=== PATIENT | female | born 1970 | race Caucasian/White ===

== ENCOUNTER → 2021-05-31 10:00 | Outpatient (BNVA) | payer OTHER, SELFPAY | PROVIDERS: PCP Internal Medicine; Visit Provider Physician Assistant | DX: Z13.89 Encounter for screening for other disorder (principal) | CPT/HCPCS: 73630; 99203 ==

== ENCOUNTER 2021-09-08 08:47 | Outpatient (REF) | payer OTHER, SELFPAY ==
--- NOTE | ~2021-09-08 | XR_ITS ---
EXAMINATION: XR CHEST CLINICAL INFORMATION: Post Covid with pleuritic chest pain COMPARISON: 11/17/2008 TECHNIQUE: 2 views of the chest were obtained. FINDINGS: The lung ocampo are grossly clear. The cardiac silhouette is felt to be within normal limits. There is no effusion. Likely nipple shadow overlying the lower lung zone on the left. Also seen previously. There is no effusion Some degenerative change in the thoracic spine ongoing from previous. No acute compression injury. XR/XR chest 2V IMPRESSION: No acute finding.
[2021-09-08 10:06] LABS: MANUAL DIFF FLAG NO
[2021-09-08 10:23] LABS: Basophils Percent Auto 0.6 % (0-2); Eosinophils Absolute Auto 0.1 X10*3/uL (0.0-0.4); Eosinophils Percent Auto 1.7 % (0-4); Hematocrit 45.6 % (37.0-47.0); Imm Gran Abs Auto 0.02 X10*3/uL (0.00-0.03); Imm Gran Pct Auto 0.4 % (0.0-0.4); Lymphocytes Absolute Auto 2.3 X10*3/uL (1.2-4.9); Lymphocytes Percent Auto 42.9 % (20-40); Mean Corpuscular HGB Conc 32.9 g/dl (31.0-35.0); Mean Corpuscular Hemoglobin 28.8 pg (27.0-33.0); Mean Corpuscular Volume 87.7 fL (80.0-98.0); Mean Platelet Volume 8.7 fL (9.4-12.3); Monocytes Absolute Auto 0.4 X10*3/uL (0.1-1.2); Monocytes Percent Auto 7.9 % (2-11); Neutrophils Absolute Auto 2.5 x10*3/uL (2.0-8.3); Neutrophils Percent Auto 46.5 % (45-73); Platelet Count 249 X10*3/uL (160-400); Red Cell Distribution Width 11.9 % (11.0-16.0); White Blood Count 5.5 X10*3/uL (4.8-10.8)
[2021-09-08 10:53] LABS: Alanine Aminotransferase 21 U/L (0-31); Albumin Level 4.4 g/dL (3.5-5.0); Alkaline Phosphatase 109 U/L (39-117); Anion Gap 12 (12-20); Aspartate Amino Transferase 20 U/L (5-31); Bilirubin Total 0.5 mg/dL (0.0-1.0); Blood Urea Nitrogen 16 mg/dL (9-16); Calcium 9.8 mg/dL (8.4-10.2); Carbon Dioxide 30 mmol/L (22-29); Chloride 103 mmol/L (96-108); Estimated Glomerular Filt Rate > 60; Glucose Random 98 mg/dL (60-115); Magnesium 2.1 mg/dL (1.6-2.6); Potassium 4.5 mmol/L (3.3-5.1); Sodium 140 mmol/L (135-145); Total Protein 7.3 g/dL (6.5-8.0)
[2021-09-08 11:15] LABS: Vitamin D 25-OH Total 43.3 ng/mL (>30)
== END 2021-09-08 08:48 | disposition home or self-care (01) ==
LOC: HO.LAB 08:47
PROVIDERS: PCP Nurse Practitioner Family; Visit Provider Nurse Practitioner Family
DX: U09.9 Post COVID-19 condition, unspecified (principal); R25.2 Cramp and spasm; E55.9 Vitamin D deficiency, unspecified; R53.83 Other fatigue
CPT/HCPCS: 36415; 71046; 80053; 82306; 83735; 85025

== ENCOUNTER 2021-09-27 08:51 | Outpatient (REF) | payer OTHER, SELFPAY ==
[2021-09-27 09:23] LABS: COVID-19 Test Negative (Negative)
== END 2021-09-27 08:52 | disposition home or self-care (01) ==
LOC: HO.LAB 08:51
PROVIDERS: Visit Provider Internal Medicine
DX: Z20.822 Contact with and (suspected) exposure to COVID-19 (principal)
CPT/HCPCS: 87635; C9803

== ENCOUNTER 2022-03-20 | Outpatient (REF) | payer OTHER, SELFPAY ==
[2022-03-20 12:38] LABS: C Reactive Protein 0.23 mg/dL (< or = 0.50); Rheumatoid Factor < 15.0 IU/mL (<15.0)
[2022-03-20 12:59] LABS: Erythrocyte Sedimentation Rate 8 MM/HR (0-20)
[2022-03-22 08:46] LABS: Lyme Abs Screen <0.90 index
[2022-03-22 18:07] LABS: Cyclic Citrullinated Peptide <16 UNITS
== END 2022-03-20 00:01 | disposition home or self-care (01) ==
LOC: HO.LAB
PROVIDERS: Visit Provider Nurse Practitioner Family
DX: M25.50 Pain in unspecified joint (principal)
CPT/HCPCS: 36415; 85652; 86140; 86200; 86431; 86617; 86618

== ENCOUNTER 2022-03-22 08:52 | Outpatient (REF) | payer OTHER, SELFPAY ==
--- NOTE | ~2022-03-22 | MM_ITS ---
EXAMINATION: MM SCREENING DIGITAL BREAST TOMOSYNTHESIS, BILATERAL CLINICAL INFORMATION: Screening. Asymptomatic. The lifetime risk of breast cancer based on the Tyrer-Cuzick Model is 8%. COMPARISON: Outside mammography: 01/30/2018, 09/05/2012 ([facility]) TECHNIQUE: Digital mammography is performed in craniocaudal and mediolateral oblique views along with computer-aided detection (CAD). Digital breast tomosynthesis is performed in implant-displaced craniocaudal and implant-displaced mediolateral oblique views along with computer-aided detection (CAD). Synthesized 2D images are generated from the tomosynthesis. FINDINGS: There are scattered areas of fibroglandular density (ACR BI-RADS breast composition Category b). There are no significant masses, abnormal calcifications, or other abnormalities. There are bilateral implants. Implant contours are similar to prior outside exam. There is no developing density or interval mass or architectural abnormality. The axilla are unremarkable. No significant changes from outside studies. MM/MM tomosynthesis screen imp BI IMPRESSION: No mammographic evidence of malignancy. ASSESSMENT: BI-RADS 2: Benign RECOMMENDATION: Routine annual mammography screening. This patient's information was entered into a reminder system with a target due date for their next mammogram.
== END 2022-03-22 08:53 | disposition home or self-care (01) ==
LOC: HO.MAMMO 08:52
PROVIDERS: Visit Provider Nurse Practitioner Family
DX: Z12.31 Encounter for screening mammogram for malignant neoplasm of breast (principal)
CPT/HCPCS: 77063; 77067

== ENCOUNTER 2022-05-30 09:37 | Outpatient (REF) | payer OTHER, SELFPAY ==
--- NOTE | ~2022-05-30 | XR_ITS ---
EXAMINATION: XR CERVICAL SPINE XR LUMBAR SPINE CLINICAL INFORMATION: Cervical and lumbar pain. COMPARISON: None TECHNIQUE: AP, lateral, open-mouth, bilateral oblique views of the cervical spine. AP, lateral, coned down, bilateral oblique views of the lumbar spine. FINDINGS: CERVICAL SPINE: Mild straightening of the normal cervical lordosis which may be positional or related to muscle spasm. No acute fracture or subluxation. No loss of vertebral body height. Loss of intervertebral disc height at C5-C6 with small anterior endplate osteophytes at C5-C6 and C6-C7. Mild bilateral neural foraminal stenosis at C5-C6. Unremarkable facet joints. No concerning lytic or blastic osseous lesion. Unremarkable prevertebral soft tissues. Normal atlantoaxial alignment. LUMBAR SPINE: Normal vertebral body alignment. The lumbar lordosis is maintained. No acute fracture or subluxation. No loss of vertebral body height. Mild loss of intervertebral disc height with tiny endplate osteophytes at L5-S1. Bilateral facet arthropathy at L4-L5 and L5-S1. No abnormal soft tissue calcification. XR/XR lumbar spine 4V min IMPRESSION: Cervical Spine: Mild straightening of the normal cervical lordosis, which may be positional or related to muscular spasm. Mild degenerative disc disease at C5-C6 and C6-C7 with mild bilateral neural foraminal stenosis at C5-C6. Lumbar Spine: Mild degenerative disc disease at L5-S1 with bilateral facet arthropathy at L4-L5 and L5-S1.
--- NOTE | ~2022-05-30 | XR_ITS ---
EXAMINATION: XR CERVICAL SPINE XR LUMBAR SPINE CLINICAL INFORMATION: Cervical and lumbar pain. COMPARISON: None TECHNIQUE: AP, lateral, open-mouth, bilateral oblique views of the cervical spine. AP, lateral, coned down, bilateral oblique views of the lumbar spine. FINDINGS: CERVICAL SPINE: Mild straightening of the normal cervical lordosis which may be positional or related to muscle spasm. No acute fracture or subluxation. No loss of vertebral body height. Loss of intervertebral disc height at C5-C6 with small anterior endplate osteophytes at C5-C6 and C6-C7. Mild bilateral neural foraminal stenosis at C5-C6. Unremarkable facet joints. No concerning lytic or blastic osseous lesion. Unremarkable prevertebral soft tissues. Normal atlantoaxial alignment. LUMBAR SPINE: Normal vertebral body alignment. The lumbar lordosis is maintained. No acute fracture or subluxation. No loss of vertebral body height. Mild loss of intervertebral disc height with tiny endplate osteophytes at L5-S1. Bilateral facet arthropathy at L4-L5 and L5-S1. No abnormal soft tissue calcification. XR/XR cervical spine 4V IMPRESSION: Cervical Spine: Mild straightening of the normal cervical lordosis, which may be positional or related to muscular spasm. Mild degenerative disc disease at C5-C6 and C6-C7 with mild bilateral neural foraminal stenosis at C5-C6. Lumbar Spine: Mild degenerative disc disease at L5-S1 with bilateral facet arthropathy at L4-L5 and L5-S1.
== END 2022-05-30 09:38 | disposition home or self-care (01) ==
LOC: HO.XRAY 09:37
PROVIDERS: PCP Nurse Practitioner Family; Visit Provider Psychiatry & Neurology Neurology
DX: M54.2 Cervicalgia (principal); M54.50 Low back pain, unspecified
CPT/HCPCS: 72050; 72110

== ENCOUNTER 2022-08-10 11:49 | Outpatient (REF) | payer OTHER, SELFPAY ==
[2022-08-10 12:14] LABS: Appearance Urine Clear; Color Urine Yellow; Glucose Urine UA Negative (Negative); Leukocyte Esterase Urine Negative (Negative); Nitrite Urine Negative (Negative); Specific Gravity - Urine <= 1.005 (1.005-1.025); Urine Blood Negative (Negative); Urine Ketones Negative (Negative); Urine Protein Negative (Neg-Trace)
[2022-08-10 12:20] LABS: Bacteria Urine None Seen (None Seen); Hyaline Casts Urine 0-2 /LPF (0-2); RBC Urine 0-2 /HPF (0-2); WBC Urine 0-5 /HPF (0-5)
== END 2022-08-10 11:50 | disposition home or self-care (01) ==
LOC: HO.LAB 11:49
PROVIDERS: PCP Nurse Practitioner Family; Visit Provider Obstetrics & Gynecology
DX: N94.9 Unspecified condition associated with female genital organs and menstrual cycle (principal); R14.0 Abdominal distension (gaseous); R10.2 Pelvic and perineal pain
CPT/HCPCS: 81001; 87086

== ENCOUNTER 2022-09-21 11:12 | Outpatient (REF) | payer OTHER, SELFPAY ==
[2022-09-21 11:28] LABS: MANUAL DIFF FLAG NO
[2022-09-21 11:52] LABS: Basophils Percent Auto 0.7 % (0-2); Eosinophils Absolute Auto 0.1 X10*3/uL (0.0-0.4); Eosinophils Percent Auto 1.7 % (0-4); Hematocrit 44.1 % (37.0-47.0); Imm Gran Abs Auto 0.02 X10*3/uL (0.00-0.03); Imm Gran Pct Auto 0.3 % (0.0-0.4); Lymphocytes Absolute Auto 1.7 X10*3/uL (1.2-4.9); Lymphocytes Percent Auto 28.7 % (20-40); Mean Corpuscular Hemoglobin 29.5 pg (27.0-33.0); Mean Corpuscular Volume 86.6 fL (80.0-98.0); Mean Platelet Volume 9.3 fL (9.4-12.3); Monocytes Absolute Auto 0.4 X10*3/uL (0.1-1.2); Monocytes Percent Auto 7.6 % (2-11); Neutrophils Absolute Auto 3.6 x10*3/uL (2.0-8.3); Platelet Count 214 X10*3/uL (160-400); Red Blood Count 5.09 X10*6/uL (4.20-5.50); Red Cell Distribution Width 12.1 % (11.0-16.0); White Blood Count 5.8 X10*3/uL (4.8-10.8)
[2022-09-21 12:41] LABS: Erythrocyte Sedimentation Rate 7 MM/HR (0-20)
[2022-09-21 13:25] LABS: Free T4 (Free Thyroxine) 1.05 ng/dL (0.71-1.85); Thyroid Stimulating Hormone 1.57 uIU/mL (0.32-4.0)
== END 2022-09-21 11:13 | disposition home or self-care (01) ==
LOC: HO.LAB 11:12
PROVIDERS: PCP Nurse Practitioner Family; Visit Provider Obstetrics & Gynecology
DX: R10.2 Pelvic and perineal pain (principal); N92.0 Excessive and frequent menstruation with regular cycle
CPT/HCPCS: 36415; 84439; 84443; 85025; 85652

== ENCOUNTER 2022-12-06 07:48 | Outpatient (REF) | payer OTHER, SELFPAY ==
[2022-12-06 09:10] LABS: Alanine Aminotransferase 23 U/L (0-31); Albumin Level 4.2 g/dL (3.5-5.0); Alkaline Phosphatase 128 U/L (39-117); Anion Gap 14 (12-20); Aspartate Amino Transferase 21 U/L (5-31); Bilirubin Total 0.6 mg/dL (0.0-1.0); Blood Urea Nitrogen 18 mg/dL (9-16); Calcium 9.3 mg/dL (8.4-10.2); Carbon Dioxide 26 mmol/L (22-29); Chloride 106 mmol/L (96-108); Estimated Glomerular Filt Rate > 60; Glucose Random 102 mg/dL (60-115); Iron 82 mcg/dL (30-160); Percent Iron Saturation 28 % (15-50); Potassium 4.5 mmol/L (3.3-5.1); Sodium 141 mmol/L (135-145); Total Iron Binding Capacity 291 mcg/dL (228-428); Total Protein 6.8 g/dL (6.5-8.0); Unsaturated Iron Binding 209 ug/dL
[2022-12-06 09:37] LABS: Thyroid Stimulating Hormone 1.98 uIU/mL (0.32-4.0); Vitamin B12 495 pg/mL (200-900)
== END 2022-12-06 07:49 | disposition home or self-care (01) ==
LOC: HO.LAB 07:48
PROVIDERS: Visit Provider Nurse Practitioner Family
DX: Z13.220 Encounter for screening for lipoid disorders (principal); R53.83 Other fatigue; D64.9 Anemia, unspecified; I10 Essential (primary) hypertension
CPT/HCPCS: 36415; 80053; 82607; 83540; 84443

== ENCOUNTER 2023-12-18 10:00 | Outpatient (RCR) | payer OTHER, SELFPAY | END 2024-02-25 10:48 | disposition home or self-care (01) | LOC: HO.PT 10:00 | PROVIDERS: PCP Nurse Practitioner Family; Visit Provider Nurse Practitioner Family | DX: M25.511 Pain in right shoulder (principal); M79.601 Pain in right arm | CPT/HCPCS: 95992; 97033; 97110; 97112; 97140; 97161 ==

== ENCOUNTER 2024-01-03 10:54 | Outpatient (RCR) | payer OTHER, SELFPAY | END 2024-04-13 11:26 | disposition home or self-care (01) | LOC: HO.PT 10:54 | PROVIDERS: PCP Nurse Practitioner Family; Visit Provider Nurse Practitioner Family | DX: H81.10 Benign paroxysmal vertigo, unspecified ear (principal) | CPT/HCPCS: 95992; 97161 ==

== ENCOUNTER 2024-01-21 09:31 | Outpatient (REF) | payer OTHER, SELFPAY ==
[2024-01-21 11:03] LABS: Alanine Aminotransferase 19 U/L (0-31); Albumin Level 4.2 g/dL (3.5-5.0); Alkaline Phosphatase 134 U/L (39-117); Anion Gap 12 (12-20); Aspartate Amino Transferase 19 U/L (5-31); Bilirubin Total 0.4 mg/dL (0.0-1.0); Blood Urea Nitrogen 14 mg/dL (9-16); Calcium 9.3 mg/dL (8.4-10.2); Carbon Dioxide 26 mmol/L (22-29); Chloride 107 mmol/L (96-108); Cholesterol 230 mg/dL (<200); Estimated Glomerular Filt Rate > 60; Glucose Random 96 mg/dL (60-115); HDL Cholesterol 54 mg/dL (>40); LDL Cholesterol Calculated 156 mg/dL (<100); Sodium 141 mmol/L (135-145); Total Protein 6.9 g/dL (6.5-8.0); Triglycerides 100 mg/dL (<150)
== END 2024-01-21 09:32 | disposition home or self-care (01) ==
LOC: HO.LAB 09:31
PROVIDERS: Visit Provider Nurse Practitioner Family
DX: Z00.00 Encounter for general adult medical examination without abnormal findings (principal); I10 Essential (primary) hypertension
CPT/HCPCS: 36415; 80053; 80061

== ENCOUNTER 2024-04-02 15:41 | Emergency (ER) | payer OTHER, SELFPAY ==
--- NOTE | ~2024-04-02 | XR_ITS ---
EXAMINATION: XR LUMBOSACRAL SPINE CLINICAL INFORMATION: Pain. COMPARISON: Lumbar spine radiographs dated 05/30/2022. TECHNIQUE: Three views of the lumbosacral spine. FINDINGS: Normal vertebral body alignment. The lumbar lordosis is maintained. No acute fracture or subluxation. No loss of vertebral body height. Mild loss of intervertebral disc height with tiny endplate osteophytes redemonstrated at L5-S1. Bilateral facet arthropathy at L4 through S1, unchanged. No concerning lytic or blastic osseous lesion. No abnormal soft tissue calcification. XR/XR lumbar spine 2-3V IMPRESSION: Mild degenerative disc disease at L5-S1 with bilateral facet arthropathy at L4 through S1, unchanged. Electronically signed by: Timothy Perez MD 04/02/2024 09:31 PM EDT
--- NOTE | ~2024-04-02 | XR_ITS ---
EXAMINATION: XR BILATERAL HIPS WITH AP PELVIS CLINICAL INFORMATION: Pain. COMPARISON: None available. TECHNIQUE: AP view of the pelvis as well as AP and frog-leg lateral views of the right and left hip. FINDINGS: No acute fracture or dislocation. No significant joint space narrowing. Tiny bilateral acetabular marginal osteophytes. No osseous erosion. No evidence of femoral head avascular necrosis. No abnormal soft tissue calcification. XR/XR hip BI w PEL1V IMPRESSION: Minimal bilateral hip arthrosis. Electronically signed by: Timothy Perez MD 04/02/2024 09:27 PM EDT
[2024-04-02 15:56] VITALS: BP 115/92; BP 130/80; PULSE 70; PULSE 72; RESP 18; TEMP 35.8; O2SAT 94; O2SAT 98; BMI 24.5
[2024-04-02] MEDS: Ketorolac Tromethamine 30 MG/ML VIAL IVPUSH (16:55)
[2024-04-02] MEDS: dexAMETHasone sod phosphate 10 MG/ML VIAL IVPUSH (16:55)
--- NOTE | 2024-04-02 17:04 | PC.NURSE ---
pt was medicated per order, after pt was administered the ivp steroid she had a warm/hot off sensation to her vaginal area and in her head which lasted a minute or so. the medication was pushed slowly over approx 3 minutes and pt still had side effect. the provider was notified of this. will continue to monitor.
--- NOTE | 2024-04-02 17:59 | ED_ITS ---
HPI - Back Pain/Injury General Chief Complaint: Back Pain/Injury Stated Complaint: back pain from doing cleaning Time Seen by Provider: 04/02/24 16:23 Source: patient and RN notes reviewed Mode of arrival: ambulatory Limitations: no limitations History of Present Illness ED Provider: Jovana Holman PA-C [facility] Narrative: This is a 54-year-old female, with no known medical problems, who presents emergency department via EMS with complaints of back pain since this morning. Patient states that she was in a bent down squat position cleaning the floor and upon standing she developed severe 9/10 back pain. Patient states that she took Flexeril as well as ibuprofen which provided her with no relief. She states no history of back problems in the past. She denies any urinary or bowel retention or incontinence. No saddle anesthesia. No numbness tingling or weakness. She states that she has had difficulty with ambulation as the back pain worsens with positional changes. She denies any fevers, chills, chest pain, shortness of breath, abdominal pain, nausea, vomiting or diarrhea. No urinary symptoms. She also received fentanyl in route to the hospital which provided her with some relief. No other complaints or concerns at this time. MD elicited complaint: back pain Onset (ago): hour(s) Timing: constant Location: lumbar spine and right lower back Radiation: none Exacerbating factors: movement Relieving factors: immobilization and medication Associated symptoms: denies other symptoms Treatments prior to arrival: NSAIDS and other medications (Flexeril, fentanyl via EMS) Work related injury: No Related Data Previous Rx's ?Medication ?Instructions ?Recorded ketorolac 10 mg tablet 10 mg PO Q6H PRN pain 3 days #15 04/02/24 tabs lidocaine 5 % topical patch 1 patch topical DAILY #30 ea 04/02/24 (Lidoderm) methocarbamol 750 mg tablet 750 mg PO TID 3 days #9 tabs 04/02/24 Allergies Allergy/AdvReac Type Severity Reaction Status Date / Time meperidine [Demerol] Allergy Unknown irritabilit Verified 04/02/24 15:58 y Erythromycin Allergy Unknown diarrhea Uncoded 05/21/17 00:00 Review of Systems Review of Systems: Yes all other systems are reviewed and are negative Constitutional: Constitutional: Reports as per [facility] Past Medical History Attestation statement: The following information was validated with the patient. Social History Social History Advance Directives: Yes Advance Directives Information Provided: No Advance Directives on File: No Do you have a plan to hurt others: No Plan Physical Exam Vital Signs: Vital Signs: Last Vital Signs Temp 96.5 F L 04/02/24 18:18 Pulse 72 04/02/24 18:18 Resp 18 04/02/24 18:18 BP 115/92 H 04/02/24 18:18 Pulse Ox 94 04/02/24 18:18 O2 Del Method Room Air 04/02/24 18:18 BMI result Body Mass Index 24.5 Const: General: cooperative, comfortable and no acute distress Orientation/consciousness: patient oriented x3 Limitations: no limitations HEENT: Head: Yes normal to inspection, Yes normocephalic and Yes atraumatic Ears: hearing grossly normal bilaterally General nose exam: Normal external nose present Face and sinus: Yes normal facial exam Mouth: Normal oral and palatal mucosa present, oropharynx normal and moist mucous membranes Throat: Yes posterior oropharynx normal Eyes: General: appearance normal, both eyes and all related structures Eyelids: Yes eyelids normal Conjunctivae: conjunctivae normal Sclerae: sclerae normal Pupils: Equal, round and reactive pupils present EOM: EOMs intact bilaterally Neck: Neck: Yes normal visual inspection, Yes full ROM and Yes no l ymphadenopathy Lymphatic: no lymphadenopathy noted Chest: Chest palpation & inspection: normal inspection of the chest Resp: Effort & Inspection: normal respiratory effort and able to speak in complete sentences Auscultation: clear to auscultation bilaterally, no crackles, no rales, no rhonchi and no wheezes Cardio: Rate: regular rate Rhythm: regular rhythm Heart sounds: S1 normal heart sound present and S2 normal heart sound present GI: Other: Abdomen is soft, nontender, nondistended Inspection: Yes normal to inspection Back/Spine/Pelvis: Other: No midline spine tenderness to palpation mild tenderness palpation along the right SI joint no overlying skin changes, warmth. Negative straight leg raise. She does have exacerbating right-sided low back pain pain upon lifting her left leg straight. DTRs are 2+ Cervical Spine: normal cervical lordosis Thoracic/Lumbar Spine: thoracic and lumbar spine normal to inspection Skin: General skin exam: no rashes or lesions noted Trauma: no lacerations or abrasions Wounds: no wounds Neuro: General: patient oriented x3 and moves all extremities Cranial ner ves: Yes Equal, round and reactive pupils present Extrem: General: Yes normal to inspection Right upper extremity: normal to inspection Left upper extremity: normal to inspection Right lower extremity: normal to inspection Left lower extremity: normal to inspection Course Reevaluation(s) Reevaluation #1: Patient feeling much better after receiving IV Decadron, and Toradol. X-rays were reviewed by my attending physician, Dr. Silva, no acute bony abnormality seen. Patient is ambulatory in his feeling much better. Discharge patient with strict return precautions. Patient will follow-up with her PCP. Patient stable for discharge. Medications Administered Discontinued Medications Generic Name Dose Route Start Last Admin Trade Name Freq PRN Reason Stop Dose Admin Dexamethasone Sodium Phosphate 10 mg 04/02/24 16:45 04/02/24 16:55 Dexamethasone Sod Phosphate 10 Mg/Ml Vial IVPUSH 04/02/24 16:46 10 mg ONCE ONE Administration Ketorolac Tromethamine 30 mg 04/02/24 16:45 04/02/24 16:55 Ketorolac Tromethamine 30 Mg/Ml Vial IVPUSH 04/02/24 16:46 30 mg ONCE ONE Administration Medical Decision Making Medical Decision Making MDM Narrative: This is a 54-year-old female who presents emergency department with complaints of acute back pain which started this morning after bending over. On arrival, vital signs within normal limits. She is speaking full sentences under no acute distress. She has observable pain with positional changes. He has no midline spine tenderness. This patient presents with back pain most consistent with lumbar spasm. Differential diagnoses includes lumbago versus musculoskeletal spasm / strain versus sciatica.No back pain red flags on history or physical. Presentation not consistent with malignancy (lack of history of malignancy, lack of B symptoms), fracture (no trauma, no bony tenderness to palpation), cauda equina syndrome (no bowel or urinary incontinence/retention, no saddle anesthesia, no distal weakness), pyelonephritis (afebrile, no CVAT, no urinary symptoms). Patient was seen in the emergency department by my attending physician, Dr. Silva, who recommends lumbar spine x-ray, hip and pelvis x-ray, as well as medication with Decadron 10 mg IV push as well as Toradol 30 mg IV push. Plan: X-rays, medication, re-evaluation Differential Diagnosis Differential Diagnoses: The differential diagnosis associated with the presentation includes See above Admission/Observation Consideration of admission/observation: Escalation of care including admission/observation considered Discharge Plan Discharge Clinical Impression: Lumbar paraspinal muscle spasm Patient Disposition: Home, Self-Care Instructions: Muscle Spasm (ED), Back Pain (ED) Additional Instructions: You were seen in the emergency department due to back pain. Your x-rays do not reveal any significant acute process however are still waiting to be officially read by the radiologist. We will call you if these are abnormal. Please rest, drink plenty of fluids, and perform gentle stretching and massage to help. Lidoderm patches can also help with your symptoms, do not directly apply heat or ice to the patches as this can cause a thermal burn. Take Toradol as needed for pain. Do not take this with ibuprofen naproxen or any other NSAIDs. You may take Tylenol with the Toradol if needed. You may also take methocarbamol, this is a muscle relaxant, please take only as needed, and please be advised that this can cause drowsiness, do not drink alcohol or drive while taking this medication. Follow-up with your primary care physician regarding this visit. Call tomorrow to make an appointment. If any new or worsening symptoms occur including but not limited to worsening pain, fevers, abdominal pain, chest pain, urinary or bowel retention or incontinence, numbness or tingling into your groin, inability to walk, please seek emergent care. I hope you feel better soon! Prescriptions: New ketorolac 10 mg tablet 10 mg PO Q6H PRN (Reason: pain) 3 Days Qty: 15 0RF methocarbamol 750 mg tablet 750 mg PO TID 3 Days Qty: 9 0RF lidocaine [Lidoderm] 5 % adhesive patch,medicated 1 patch topical DAILY Qty: 30 0RF Rx Instructions: leave on most painful area for up to 12 hrs Interventions: ED Discharge Assessment Last Done: 04/02/24 18:18 Discharge Date/Time: 04/02/24 18:18 Print Language: Norwegian
[2024-04-02 18:18] VITALS: BP 115/92; PULSE 72; RESP 18; TEMP 35.8; O2SAT 94
== END 2024-04-02 18:18 | disposition home or self-care (01) ==
PROVIDERS: Emergency Provider Internal Medicine; PCP Nurse Practitioner Family
DX: M62.830 Muscle spasm of back (principal); M54.50 Low back pain, unspecified; M25.552 Pain in left hip; M25.551 Pain in right hip
CPT/HCPCS: 72100; 73521; 96374; 99283; 99284; J1100; J1885

== ENCOUNTER 2024-08-11 08:43 | Outpatient (REF) | payer OTHER, SELFPAY ==
--- NOTE | ~2024-08-11 | XR_ITS ---
CLINICAL HISTORY: M25.512 - Pain in left shoulder 2 view left shoulder Comparison: None Findings: No fractures or dislocations. No significant loss of joint space or osteophytes. No erosions. No radiopaque foreign body. IMPRESSION: 1. No acute findings This document has been electronically signed by: Colleen Bertrand MD on 08/12/2024 06:16:04
== END 2024-08-11 08:44 | disposition home or self-care (01) ==
LOC: HO.HOSX 08:43
PROVIDERS: Visit Provider Orthopaedic Surgery
DX: M25.512 Pain in left shoulder (principal)
CPT/HCPCS: 73030

== ENCOUNTER 2024-08-11 10:45 | Outpatient (AMB) | payer OTHER, SELFPAY ==
[2024-08-11 10:52] VITALS: BMI 24.4
--- NOTE | 2024-08-11 10:52 | MHC.OFFVIS ---
Vital Signs 08/11/24 10:52 Height 5 ft 6 in Weight 151 lb BMI 24.4 Intake Visit Reasons: Left shoulder pain, Left arm numbness Intake Note: Gosia is a 54 year old female who presents with complaints of progressively worsening left shoulder pain as well as ?numbness? which runs from her neck down to her left hand. The patient states that the numbness tends to involve all of her fingers. Her symptoms have gotten worse over the last year in spite of continued non operative treatments. The patient did do physical therapy in December of 2023 which gave her minimal relief. She reports weakness when lifting her left hand above shoulder height. She has tried Tylenol, anti-inflammatory medicines and lidocaine patches which gave her mild relief. Allergies meperidine [Demerol] Allergy (Unknown, Verified 08/11/24 10:52) irritability Erythromycin Allergy (Unknown, Uncoded 08/11/24 10:52) diarrhea Medication List - Last Reconciled 08/11/24 by Luis E Jon MD metoprolol succinate ER mg PO DAILY Physical Exam Vital Signs: BMI result Body Mass Index 24.4 Const Other: Well-nourished well-developed very friendly female awake alert and oriented x3 in no acute distress Neck Other: Neck examination shows pain with range of motion, positive Spurling's test, tenderness along her left-sided paraspinal muscles, no overlying skin lesions Extrem Other: Left shoulder examination shows slightly decreased range of motion when compared to her right shoulder, positive impingement signs, no instability Results Reviewed Results Reviewed: X-rays of the patient's left shoulder show severe acromioclavicular joint narrowing, a type 2 acromion, no acute bony abnormalities Assessment & Plan Assessment & Plan (1) Left upper extremity numbness: Code(s): R20.0 - Anesthesia of skin (2) Left shoulder pain: Code(s): M25.512 - Pain in left shoulder Category: Medical (3) Numbness and tingling in left arm: Code(s): R20.0 - Anesthesia of skin; R20.2 - Paresthesia of skin Category: Medical Plan Mrs. Rg presents with progressively worsening numbness and tingling in her left upper extremity possibly due to cervical stenosis or a cervical disc herniation. Thus, I will send the patient for an MRI of her cervical spine for further evaluation. I will contact her by phone once the MRI results are available. She will call me prior to that time should her symptoms worsen in any way. She also has left shoulder pain most likely due to impingement syndrome and possible rotator cuff tearing. We will hold off on a left shoulder MRI for now. Feel free to call me at any time should questions regarding her orthopedic management arise. I spent 20 minutes in reviewing the patient's records and imaging studies, seeing the patient and documenting in the medical record. Orders: Orders XR shoulder LT min 2V Today M25.512 - Pain in left shoulder MR cervical spine wo con Today R20.0 - Anesthesia of skin, R20.2 - Paresthesia of skin Medications: Discontinued ketorolac Discontinued Reason: Patient no longer taking 10 mg PO Q6H 3 days PRN 15 tabs 0RF pain methocarbamol Discontinued Reason: Patient no longer taking 750 mg PO TID 3 days 9 tabs 0RF lidocaine 5% (Lidoderm) leave on most painful area for up to 12 hrs Discontinued Reason: Patient no longer taking 1 patch topical DAILY 30 ea 0RF Coding Level of Care Code New Pt Level 3 (35307) Complex EM visit Add On G2211 Diagnoses Left upper extremity numbness R20.0 Left shoulder pain M25.512 Numbness and tingling in left arm R20.0; R20.2
== END 2024-08-11 11:14 | disposition home or self-care (01) ==
PROVIDERS: PCP Nurse Practitioner Family; Visit Provider Orthopaedic Surgery
DX: M25.512 Pain in left shoulder (principal); R20.2 Paresthesia of skin
CPT/HCPCS: 99203

== ENCOUNTER → 2024-08-11 10:46 | Outpatient (BNV) | payer OTHER, SELFPAY | PROVIDERS: Visit Provider Radiology Diagnostic Radiology | DX: M25.512 Pain in left shoulder (principal) | CPT/HCPCS: 73030 ==

== ENCOUNTER → 2024-08-20 07:17 | Outpatient (BNV) | payer OTHER, SELFPAY | PROVIDERS: PCP Nurse Practitioner Family; Visit Provider Radiology Diagnostic Radiology | DX: M47.812 Spondylosis without myelopathy or radiculopathy, cervical region (principal); M99.71 Connective tissue and disc stenosis of intervertebral foramina of cervical region; M25.512 Pain in left shoulder | CPT/HCPCS: 72141; 73221 ==

== ENCOUNTER 2024-08-20 07:21 | Outpatient (REF) | payer OTHER, SELFPAY ==
--- NOTE | ~2024-08-20 | MR_ITS ---
EXAMINATION: MRI LEFT SHOULDER WITHOUT CONTRAST HISTORY: M25.512 - Pain in left shoulder COMPARISON: Correlation is made with plain films of the left shoulder dated 08/11/2024. TECHNIQUE: Coronal T1, T2, and fat suppressed T2, axial fat suppressed proton density, and sagittal T2 weighted MR images of the left shoulder were obtained. FINDINGS: Bone Marrow: Bone marrow signal intensity is normal. Joint effusion: There is no glenohumeral joint effusion. Glenohumeral joint: The glenohumeral joint is maintained. AC joint: The AC joint is unremarkable. Supraspinatus muscle/tendon: There is mild irregularity of the bursal surface of the supraspinatus tendon approximately 1.5 cm from its insertion on the greater tuberosity of the humerus. Findings are consistent with a partial bursal surface tear. There is no evidence of a full-thickness tear. There is no tendon retraction. Normal muscle bulk. Infraspinatus muscle/tendon: The infraspinatus tendon is intact. Normal muscle bulk. Teres minor muscle/tendon: The teres minor tendon is intact. Normal muscle bulk. Subscapularis muscle/tendon: The subscapularis tendon is intact. Normal muscle bulk. Biceps tendon: The biceps tendon is intact and normally located. Glenoid labrum: The glenoid labrum is grossly unremarkable in appearance, although evaluation is limited by lack of a joint effusion. Other findings: None MR/MR shoulder LT wo con IMPRESSION: Findings consistent with a partial bursal surface tear of the supraspinatus tendon. Electronically signed by: Kenton Amezcua MD 08/20/2024 09:50 AM EST
--- NOTE | ~2024-08-20 | MR_ITS ---
EXAMINATION: MR CERVICAL SPINE WITHOUT CONTRAST CLINICAL INFORMATION: Paresthesis COMPARISON: None available. TECHNIQUE: MRI of the cervical spine was obtained using routine sequences without contrast. FINDINGS: Craniocervical junction is intact. No bone marrow STIR signal abnormality. Grade 1 anterolisthesis C2-3 and to a lesser extent C7-T1. Grade 1 retrolisthesis C5-6. Cervical spinal cord signal is normal. C2-3: Broad-based disc osteophyte complex formation. No cord compression. Right neuroforamina narrowing. C3-4: Broad-based disc osteophyte complex formation. No cord compression. Facet joint hypertrophy. Right neuroforamina narrowing. C4-5: Broad-based disc osteophyte complex formation. No cord compression. No neuroforamina stenosis. C5-6: Broad-based disc osteophyte complex formation. No cord compression. Facet joint hypertrophy. Bilateral neuroforamina stenosis. C6-7: Broad-based disc osteophyte consummation. No cord compression. No neuroforamina stenosis. C7-T1: No disc herniation. No neuroforamina stenosis. No prevertebral compartment hematoma, mass or fluid collections. Flow-void signal within the main vessels is normal. Codominant vertebral arteries. MR/MR cervical spine wo con IMPRESSION: Multilevel cervical spondylosis C3 C7 more conspicuous at C5-C6 resulting in bilateral neuroforamina stenosis without cord compression, cord edema and or myelopathy. Right neuroforamina narrowing at C2-3 and C3-4 on a degenerative basis. Electronically signed by: Chris Mares MD 08/20/2024 09:54 AM EST
== END 2024-08-20 07:22 | disposition home or self-care (01) ==
LOC: HO.MRI 07:21
PROVIDERS: PCP Nurse Practitioner Family; Visit Provider Orthopaedic Surgery
DX: R20.0 Anesthesia of skin (principal); R20.2 Paresthesia of skin; M25.512 Pain in left shoulder
CPT/HCPCS: 72141; 73221

== ENCOUNTER 2024-09-04 12:57 | Outpatient (AMB) | payer OTHER, SELFPAY ==
--- NOTE | 2024-09-04 13:08 | HO.SPINEOV ---
Vital Signs 09/04/24 13:09 Height 5 ft 6 in Weight 151 lb BMI 24.4 Intake Visit Reasons: Neck pain Intake Note: Ms. Rg is here today c/o neck pain. 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 It will radiate down the anterior aspect of her biceps. It is generally aggravated with doing exercises at the gym, or overhead movements such as taking off his shirt or pressing overhead. She does get occasional tingling down into the arm but it is only very rarely. Occasionally will get pain into her forearm as well but it is only occasionally. The pain does not bother her at night when she is lying on that side. She underwent a shoulder MRI which is more less unremarkable so she had a cervical MRI to evaluate for possible origin in the neck region. This showed some degeneration at C5-6 with neuroforaminal stenosis and she was sent to see us. PMH: She is reasonably healthy, she had history of SVT which is controlled with Lopressor. She had a right rotator cuff repair a number of years ago and did very well after that. Social hx: She has not smoke, occasional alcohol use, no recreational drugs Medications: Lopressor Allergies: Demerol and Inapsine Physical exam: Awake alert oriented no acute distress, strength is grossly full in the upper extremities, she does have a lot of pain with abduction and overhead reaching movements, even passive range of motion. Imaging review: Cervical MRI shows some mild disc degeneration at C5-6 with [id number] neuroforaminal narrowing. Impression: 54-year-old female presents with pain in her anterior shoulder region shows radiate down her anterior biceps, primarily associated with overhead movements of her arm and pressing type movements that she does not the gym. Initially was felt that it might be her shoulder given her previous issue with rotator cuff problems, but this was unremarkable on her MRI. She does have some MRI findings on the cervical spine showing some wdiy-bh-clrlioud degeneration at C5-6 with foraminal narrowing but I am not sure if this would explain her symptoms. Because the pain is so connected with activity and motion of the shoulder, and in general does not radiate down into her arm and hand with any degree of consistency, I am wondering if it is just a muscle in the area of the shoulder and when she uses it it becomes a little inflamed. It is at the point where she has not even needed to take a Tylenol yet to deal with the discomfort so I told her just to avoid the movements that make it uncomfortable but that I did not think she would benefit from neck surgery at this time. I did describe what cervical radiculopathy would look like in terms of the pain in the arm and the overall level of intensity and if she gets that she will give me a call and come back and see us. Thank you for allowing us to care for your patient. The total time spent with this visit with this patient was 45 minutes reviewing history, physical exam, cervical MRI imaging review, and implementation of treatment plan or further diagnostic testing Markell Salazar MD,PhD [facility] Coding Level of Care Code New Pt Level 4 (85067) Diagnoses Cervical stenosis of spinal canal M48.02
[2024-09-04 13:09] VITALS: BMI 24.4
== END 2024-09-04 13:34 | disposition home or self-care (01) ==
PROVIDERS: PCP Nurse Practitioner Family; Referring Provider Orthopaedic Surgery; Visit Provider Physician Assistant
DX: M48.02 Spinal stenosis, cervical region (principal)
CPT/HCPCS: 99204

== ENCOUNTER 2024-10-09 09:16 | Outpatient (REF) | payer OTHER, SELFPAY ==
[2024-10-09 12:18] LABS: Vitamin B12 483 pg/mL (200-900)
[2024-10-09 12:22] LABS: Alanine Aminotransferase 32 U/L (0-31); Albumin Level 4.2 g/dL (3.5-5.0); Alkaline Phosphatase 135 U/L (39-117); Anion Gap 12 (12-20); Aspartate Amino Transferase 29 U/L (5-31); Bilirubin Total 0.4 mg/dL (0.0-1.0); Blood Urea Nitrogen 17 mg/dL (9-16); Calcium 9.1 mg/dL (8.4-10.2); Carbon Dioxide 26 mmol/L (22-29); Chloride 108 mmol/L (96-108); Estimated Glomerular Filt Rate > 60; Glucose Random 87 mg/dL (60-115); Potassium 4.2 mmol/L (3.3-5.1); Sodium 142 mmol/L (135-145)
== END 2024-10-09 09:17 | disposition home or self-care (01) ==
LOC: HO.LAB 09:16
PROVIDERS: PCP Nurse Practitioner Family; Visit Provider Nurse Practitioner Family
DX: E53.9 Vitamin B deficiency, unspecified (principal); Z13.228 Encounter for screening for other metabolic disorders
CPT/HCPCS: 36415; 80053; 82607

== ENCOUNTER 2024-10-30 09:49 | Outpatient (REF) | payer OTHER, SELFPAY ==
--- NOTE | ~2024-10-30 | MR_ITS ---
EXAMINATION: MR BRAIN WITHOUT CONTRAST CLINICAL INFORMATION: Headache COMPARISON: None available. TECHNIQUE: MRI of the brain was obtained using routine sequences without contrast. FINDINGS: No restricted diffusion. Bilateral multifocal patchy hyperintense T2 FLAIR signal involving the subcortical deep white matter of the centrum semiovale and abad radiata as well as basal ganglia. Flow-void signal within the main cerebral vessels is normal. Posterior cranial fossa contents demonstrated no signal abnormality or masses. Sellar/suprasellar region demonstrated no signal abnormality or masses. Craniocervical junction is intact and normal. MR/MR head/brain wo con IMPRESSION: No acute stroke/nonhemorrhagic ischemia. White matter disease. Consider small vessel occlusive disease versus the demyelinating disease. Electronically signed by: Chris Mares MD 11/02/2024 02:24 PM EDT
== END 2024-10-30 09:50 | disposition home or self-care (01) ==
LOC: HO.MRI 09:49
PROVIDERS: PCP Nurse Practitioner Family; Visit Provider Nurse Practitioner Family
DX: R51.9 Headache, unspecified (principal)
CPT/HCPCS: 70551

== ENCOUNTER → 2024-10-30 10:02 | Outpatient (BNV) | payer OTHER, SELFPAY | PROVIDERS: PCP Nurse Practitioner Family; Visit Provider Radiology Diagnostic Radiology | DX: R90.82 White matter disease, unspecified (principal) | CPT/HCPCS: 70551 ==

== ENCOUNTER → 2024-12-25 11:31 | Outpatient (REF) | payer OTHER, SELFPAY ==
--- NOTE | 2024-12-25 11:34 | ECG_ITS ---
Test Reason : cp Blood Pressure : */* mmHG Vent. Rate : 62 BPM Atrial Rate : 62 BPM P-R Int : 126 ms QRS Dur : 90 ms QT Int : 412 ms P-R-T Axes : 49 33 61 degrees QTcB Int : 418 ms Normal sinus rhythm with sinus arrhythmia Normal ECG No previous ECGs available Referred By: Carmen Escobar Electronically Signed By: Matthew House
--- OUTSIDE RECORDS SUMMARY | 2024-12-25 11:53 | XMS_ITS | Clinical Summary ---
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, not intractable, without status epilepticus ([facility] [place] [facility] [place]28) 12/01/2024 [facility] [address] [place] [phone] Demetrius Morrow MD Localization-related (focal) (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, not intractable, without status epilepticus ([facility] [place], [facility] V28) 11/30/2024 [facility] [address] [place] [phone] Demetrius Morrow MD Localization-related (focal) (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, not intractable, without status epilepticus ([facility] [place], [facility] V28) from Last 3 Months Social History Tobacco Use Types Packs/Day Years Used Date Smoking Tobacco: Never Assessed Comments Unknown Sex and Gender Information Value Date Recorded Sex Assigned at Not on file Legal Sex Female 10:13 AM EDT Gender Identity Not on file Sexual Orientation Not on file Plan of Treatment Health Maintenance Due Date Last Done Comments Breast Cancer Screening 1968 DTaP,Tdap,and Td Vaccines (1 - Tdap) 1987 Hepatitis B Vaccines (1 of 3 - 19+ 3-dose series) 1987 Cervical Cancer Screening: P ap Smear 1989 Pneumococcal Vaccine: 50+ Ye ars (1 of 1 - PCV) 2018 Zoster Vaccines (1 of 2) 2018 COVID-19 Vaccine ( - 2023-2 5 season) 2024 Colorectal Cancer Screening: Colonoscopy 11/28/2024 Depression Screening 11/28/2024 HIV Screening 11/28/2024 Hepatitis C Screening 11/28/2024 Social Influencers of Health Screening 11/28/2024 Influenza Vaccine (Season Ended) 2025 HIB Vaccines Aged Out No longer eligi ble based on patient's age to complete this topic HPV Vaccines Aged Out No longer eligi ble based on patient's age to complete this topic Hepatitis A Vaccines Aged Out No long er eligible based on patient's age to complete this topic IPV Vaccines Aged Out No longer eligi ble based on patient's age to complete this topic MMR Vaccines Aged Out No longer eligi ble based on patient's age to complete this topic Meningococcal ACWY Vaccine Aged Out N o longer eligible based on patient's age to complete this topic Meningococcal B Vaccine Aged Out No l onger eligible based on patient's age to complete this topic Pneumococcal Vaccine: Pediat rics (0 to 5 Years) and At-Risk Patients (6 to 64 Years) Aged Out No longer eligible b ased on patient's age to complete this topic RSV Immunization Patients Un lesvia 20 months Aged Out No longer eligible b ased on patient's age to complete this topic Varicella Vaccines Aged Out No longer eligible based on patient's age to complete this topic Insurance [employer] [facility]
== END ==
LOC: HO.CARD 11:31
PROVIDERS: PCP Nurse Practitioner Family; Visit Provider Nurse Practitioner Family
DX: R07.9 Chest pain, unspecified (principal)
CPT/HCPCS: 93005

== ENCOUNTER → 2024-12-25 11:34 | Outpatient (BNV) | payer OTHER, SELFPAY | PROVIDERS: PCP Nurse Practitioner Family; Visit Provider Internal Medicine Cardiovascular Disease | DX: R07.9 Chest pain, unspecified (principal) | CPT/HCPCS: 93010 ==

== ENCOUNTER 2025-02-03 11:27 | Outpatient (AMB) | payer OTHER, SELFPAY ==
--- NOTE | 2025-02-03 11:39 | MHC.OFFVIS ---
Intake Visit Reasons: f/u Allergies meperidine (Demerol) Allergy (Unknown, Verified 09/04/24 13:09) irritability Erythromycin Allergy (Unknown, Uncoded 08/11/24 10:52) diarrhea HPI Comments Details: 54 yo LH woman wtih episodes of right sided scalp tingling. They were happening now and then, without any known trigger, and only causing a few seconds of right scalp area tingling without any confusion or any other symptom. Aside from that, she was also having headaches, not severe, mostly on right side head and forehead, lasting for half an hour and happening couple of times a week. There was no change in personality. No bladder issues or walking problem. No speech or language issues. With suspicion of partial seizure disorder, she had an routine EEG and then an ambulatory EEG at [facility] not revealing any significant abnormality while she was having 1 of these episodes. [facility] Medical History (Updated 02/03/25 @ 11:46 by Demetrius Morrow MD) Cerebral microvascular disease Partial seizure disorder Cervical disc disease Hypertension Review of Systems Const Details: Constitutional:?No fever, chills, fatigue, weight loss, or night sweats. HEENT:?No headache, vision changes, hearing loss, nasal congestion, sore throat. Neurological:?No dizziness, syncope, seizures, numbness, tingling, weakness, tremors, memory loss. Psychiatric:?No anxiety, depression, mood swings, sleep disturbance, or hallucinations. Endocrine:?No heat/cold intolerance, polydipsia, polyuria, or hair/skin changes. Hematologic/Lymphatic:?No easy bruising, bleeding, or lymphadenopathy. Integumentary (Skin):?No rash, lesions, itching, or color changes. ? Physical Exam Neuro Other: Mental Status: Alert and oriented to person, place, and time. Normal attention. Normal spontaneous speech, fluency, and comprehension. No obvious issues with mood and memory. Affect is appropriate. Cranial Nerves: CN II: Visual ocampo full to confrontation, visual acuity intact. CN III, IV, : Pupils equal, round, reactive to light and accommodation. Extraocular movements are normal. CN V: Facial sensation is normal. CN VII: Facial movements symmetrical. CN VIII: Hearing intact to bedside conversation is normal. CN IX, X: Palate elevates symmetrically. CN XI: Shoulder shrug and head turn symmetrical. CN XII: Tongue midline without atrophy or fasciculations. Extrapyramidal: Full facial expressions and blinking. No rigidity. Movements are appropriate with no tremor or abnormality. Speech: Normal; no dysarthria or tremor. Assessment & Plan Assessment & Plan (1) Occipital neuralgia of right side: Code(s): M54.81 - Occipital neuralgia Category: Medical (2) Migraine: Code(s): G43.909 - Migraine, unspecified, not intractable, without status migrainosus Category: Medical Qualifiers: Migraine type: migraine (< 15 days per month) without aura Status migrainosus presence: without status migrainosus Intractability: not intractable Qualified Code(s): G43.009 - Migraine without aura, not intractable, without status migrainosus Plan Impression: 54 years old woman with migraine and episodes of right scalp area tingling or vibration type of feeling with normal EEG while having 1 of these episodes. Exam was normal. These features were suggestive of migraine and occipital neuralgia triggering this symptom, which can typically happened under social stress. She has started taking some magnesium and was already feeling better. If symptoms would worsened, especially headaches, a migraine preventive medicines might be a better option. Coding Level of Care Code Tele Est Pt Level 4 (76425) Diagnoses Occipital neuralgia of right side M54.81 Migraine without aura and without status migrainosus, not intractable G43.009 Migraine type: migraine (< 15 days per month) without aura Status migrainosus presence: without status migrainosus Intractability: not intractable
--- OUTSIDE RECORDS SUMMARY | 2025-02-03 12:28 | XMS_ITS | Clinical Summary ---
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, not intractable, without status epilepticus ([facility] [place] [facility] [place]28) 12/01/2024 [facility]diagn[facility] [address] [place] [phone] Demetrius Morrow MD Localization-related (focal) (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, not intractable, without status epilepticus ([facility] [place], [facility] [place] V28) 11/30/2024 [facility] [address] [place] [phone] Demetrius Morrow MD Localization-related (focal) (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, not intractable, without status epilepticus ([facility] [place] [facility], [facility] [place] V28) from Last 3 Months Social History [...] Vaccines (1 of 2) 2018 COVID-19 Vaccine (1 - 2023-2 5 season) 2024 Depression Screening 07/08/2024 Colorectal Cancer Screening: Colonoscopy 11/28/2024 HIV Screening 11/28/2024 Hepatitis C Screening 11/28/2024 Social Influencers of Health Screening 11/28/2024 Influenza Vaccine (#1) 2025 HIB Vaccines Aged Out No longer [...] patient's age to complete this topic Insurance [employer] [facility]
== END 2025-02-03 11:50 | disposition home or self-care (01) ==
LOC: HO.HSM 11:28
PROVIDERS: PCP Nurse Practitioner Family; Visit Provider Psychiatry & Neurology Neurology
DX: M54.81 Occipital neuralgia (principal); G43.009 Migraine without aura, not intractable, without status migrainosus
CPT/HCPCS: 99214